=== PATIENT | female | born 1970 | race Two or more races ===

== ENCOUNTER 2021-05-20 11:09 | Emergency (ER) | payer OTHER ==
[2021-05-20 11:50] LABS: BILIRUBIN NEGATIVE (NEGATIVE); BLOOD 1+ Ery/uL (NEGATIVE); CLARITY CLOUDY (CLEAR); COLOR YELLOW (YELLOW); GLUCOSE (U) NORMAL (NORMAL); LEUKOCYTES 3+ Leu/uL (NEGATIVE); NITRITE POSITIVE (NEGATIVE); PROTEIN 2+ mg/dL (NEGATIVE); SPECIFIC GRAVITY 1.025 (1.001-1.030); UROBILINOGEN 0.2 mg/dL (0.2-1.0)
[2021-05-20 11:57] LABS: BACTERIA 3+; SQUAMOUS EPITHELIAL CELLS RARE; URINARY WBC TNTC
[2021-05-20 12:12] LABS: BASOPHIL 0.2 % (0-2); EOSINOPHIL 0 % (0-5); HCT 40.6 % (37.0-47.0); HGB 13.7 g/dl (12.5-16.0); LYMPHOCYTE 3.4 % (15-48); MCH 30.4 pg (25.0-31.0); MCHC 33.7 g/dL (32.0-36.0); MCV 90.2 fL (78.0-100.0); MONOCYTE 8.3 % (0-12); MPV 11.3 fL (6.0-9.5); NEUTROPHIL 87.4 % (41-80); NRBC 0; PLT 325 K/uL (150-400); RDW 12.2 % (11.5-14.0); WBC 21.6 K/uL (4.0-10.5)
[2021-05-20 12:27] LABS: ALBUMIN 4.4 g/dL (3.4-5.0); BILIRUBIN - TOTAL 0.9 mg/dL (0.2-1.0); BUN/CREAT RATIO (CALC) 14.8 RATIO; CREATININE 0.81 mg/dL (0.51-0.95); GLOBULIN (CALCULATION) 4.3 g/dL; POTASSIUM 4.1 mmol/L (3.5-5.1); TOTAL PROTEIN 8.7 g/dL (6.4-8.2)
== END 2021-05-20 13:22 | disposition other institution (70) ==
LOC: FER 11:09
PROVIDERS: Emergency Medicine
DX: N13.6 Pyonephrosis (principal); Z88.8 Allergy status to other drugs, medicaments and biological substances; Z20.822 Contact with and (suspected) exposure to COVID-19
CPT/HCPCS: 36415; 80053; 81001; 83605; 85025; 87040; 87076; 87077; 87088; 87186; J0696; J2270; J2405; J7030; U0002

== ENCOUNTER 2021-06-28 13:24 | Emergency (ER) | payer OTHER ==
[2021-06-28 15:15] LABS: BILIRUBIN NEGATIVE (NEGATIVE); BLOOD 3+ Ery/uL (NEGATIVE); CLARITY CLEAR (CLEAR); COLOR YELLOW (YELLOW); GLUCOSE (U) NORMAL (NORMAL); LEUKOCYTES 1+ Leu/uL (NEGATIVE); NITRITE NEGATIVE (NEGATIVE); PROTEIN 1+ mg/dL (NEGATIVE); UROBILINOGEN 0.2 mg/dL (0.2-1.0); pH 7.5 (5.0-9.0)
[2021-06-28 15:22] LABS: BACTERIA 1+
[2021-06-28 15:23] LABS: URINARY RBC 20-50
[2021-06-28 16:28] LABS: BASOPHIL 0.4 % (0-2); EOSINOPHIL 1.8 % (0-5); HCT 38.3 % (37.0-47.0); HGB 12.4 g/dl (12.5-16.0); LYMPHOCYTE 16.1 % (15-48); MCH 29.7 pg (25.0-31.0); MCHC 32.4 g/dL (32.0-36.0); MCV 91.6 fL (78.0-100.0); MONOCYTE 7.3 % (0-12); MPV 10.8 fL (6.0-9.5); NRBC 0; PLT 288 K/uL (150-400); RBC 4.18 M/uL (4.20-5.40); RDW 12.7 % (11.5-14.0); WBC 13.5 K/uL (4.0-10.5)
[2021-06-28 16:42] LABS: BUN/CREAT RATIO (CALC) 17.1 RATIO; CREATININE 0.7 mg/dL (0.51-0.95); POTASSIUM 3.3 mmol/L (3.5-5.1)
[2021-06-28] MEDS ORDERED: ONDANSETRON ODT4 MG PO (17:40)
[2021-06-28] MEDS ORDERED: PROMETHAZINE HC25 MG PR (17:40)
[2021-06-28] MEDS ORDERED: HYDROCODON-ACE1 EAC2 PO (17:40)
== END 2021-06-28 18:30 | disposition home or self-care (01) ==
LOC: FER 13:24
PROVIDERS: Emergency Medicine
DX: N13.2 Hydronephrosis with renal and ureteral calculous obstruction (principal); E11.9 Type 2 diabetes mellitus without complications
CPT/HCPCS: 36415; 80048; 81001; 85025; 93005; J1885; J2405; J7030; Q0162

== ENCOUNTER 2021-07-16 20:23 | Emergency (ER) | payer OTHER ==
[~2021-07-16 20:23] MED LIST: HYDROCODON-ACE1 EAC2 PO; ONDANSETRON ODT4 MG PO; PROMETHAZINE HC25 MG PR
[2021-07-17 01:30] LABS: BASOPHIL 0.5 % (0-2); EOSINOPHIL 0.2 % (0-5); HCT 36.3 % (37.0-47.0); LYMPHOCYTE 22.7 % (15-48); MCH 29.1 pg (25.0-31.0); MCHC 33.1 g/dL (32.0-36.0); MCV 88.1 fL (78.0-100.0); MONOCYTE 10.6 % (0-12); MPV 11.1 fL (6.0-9.5); NEUTROPHIL 65.8 % (41-80); NRBC 0; PLT 422 K/uL (150-400); RBC 4.12 M/uL (4.20-5.40); RDW 11.9 % (11.5-14.0)
[2021-07-17 01:41] LABS: ALBUMIN 4.2 g/dL (3.4-5.0); BILIRUBIN - TOTAL 0.6 mg/dL (0.2-1.0); BUN/CREAT RATIO (CALC) 12.1 RATIO; CREATININE 0.91 mg/dL (0.51-0.95); GLOBULIN (CALCULATION) 3.9 g/dL; POTASSIUM 3.7 mmol/L (3.5-5.1); TOTAL PROTEIN 8.1 g/dL (6.4-8.2)
[2021-07-17 01:50] LABS: LACTIC ACID 2.6 mmol/L (0.4-1.9)
[2021-07-17 02:58] LABS: BILIRUBIN NEGATIVE (NEGATIVE); BLOOD NEGATIVE Ery/uL (NEGATIVE); CLARITY CLEAR (CLEAR); COLOR YELLOW (YELLOW); GLUCOSE (U) NORMAL (NORMAL); LEUKOCYTES 2+ Leu/uL (NEGATIVE); NITRITE NEGATIVE (NEGATIVE); PROTEIN NEGATIVE (NEGATIVE); SPECIFIC GRAVITY 1.015 (1.001-1.030); UROBILINOGEN 0.2 mg/dL (0.2-1.0); pH 8.5 (5.0-9.0)
[2021-07-17 03:08] LABS: BACTERIA TRACE; SQUAMOUS EPITHELIAL CELLS RARE
[2021-07-17] MEDS ORDERED: IBUPROFEN800 MG PO (04:03)
[2021-07-17] MEDS ORDERED: PROTONIX 40MG T40 MG PO (04:03)
[2021-07-17] MEDS ORDERED: ONDANSETRON ODT4 MG SL (04:03)
[2021-07-17] MEDS ORDERED: FLOMAX0.4 MG PO (04:03)
[2021-07-17] MEDS ORDERED: CIPRO500 MG PO (04:03)
[2021-07-17] MEDS ORDERED: DILAUDID2 MG PO (04:03)
== END 2021-07-17 04:52 | disposition home or self-care (01) ==
LOC: FER 20:23
PROVIDERS: Emergency Medicine Emergency Medical Services
DX: N13.2 Hydronephrosis with renal and ureteral calculous obstruction (principal); Z90.710 Acquired absence of both cervix and uterus; Z98.890 Other specified postprocedural states
CPT/HCPCS: 36415; 80053; 81001; 83605; 85025; 87040; 87088; J0696; J1170; J1885; J2405